=== PATIENT | female | born 1955 | race Caucasian/White ===

== ENCOUNTER 2020-07-11 06:05 | Day surgery (SDC) | payer BC ==
[2020-07-11] MEDS ORDERED: Lactated Ringers 1,000 ML IV SCH (06:30)
[2020-07-11] MEDS ORDERED: DIPRIVAN 200 MG/20 ML IV ONE (07:22)
[2020-07-11] MEDS ORDERED: Versed 2 MG/2 ML Injection ONE (07:23)
[2020-07-11 08:44] VITALS: O2SAT 98
[2020-07-11 08:47] VITALS: BP 110/72; PULSE 68
--- NOTE | 2020-07-11 12:53 | OP ---
SURGERY DATE/TIME: 07/11/2020 0721 PREOPERATIVE DIAGNOSIS: Epigastric abdominal pain. POSTOPERATIVE DIAGNOSES: 1) Mild gastritis. 2) Duodenal polyp. PROCEDURE: EGD. SURGEON: Sidney Rincon M.D. ANESTHESIA: MAC by Mihir Ba CRNA. ESTIMATED BLOOD LOSS: Minimal. SPECIMENS: There was cold forceps polypectomy of duodenal polyp and cold forceps biopsy of gastric antrum x2. DESCRIPTION OF PROCEDURE: After informed written consent was obtained, the patient was taken to the endoscopy suite. She was placed in left lateral decubitus position and a bite block was inserted. After anesthesia was titrated to the desired level of consciousness, the endoscope was inserted in the posterior oropharynx and under direct visualization the esophagus was traversed. The esophageal mucosa all had a normal mucosal appearance. Likewise the gastroesophageal junction appeared normal upon entering the stomach. There was normal rugated gastric mucosa present free of any lesions or defects. There were some mild gastritis-type changes in the antrum. Upon traversing the pylorus there were small polypoid lesion in the proximal duodenum which was removed with cold forceps uneventfully. No other lesions were encountered. Two cold forceps biopsies were taken from the gastric antrum and sent for Helicobacter pylori testing. Upon withdrawal the remainder of the mucosal structures all appeared within normal limits. The scope was removed and the patient was transferred to the recovery room in good condition.
== END 2020-07-11 08:52 | disposition home or self-care (01) ==
LOC: SDC 06:05
PROVIDERS: ATTEND Family Medicine
DX: K29.70 Gastritis, unspecified, without bleeding (principal); K31.7 Polyp of stomach and duodenum
CPT/HCPCS: J2250; J2704

== ENCOUNTER 2020-07-23 10:45 | Day surgery (SDC) | payer BC ==
[~2020-07-23 10:45] MED LIST: Lactated Ringers 1,000 ML IV ONE; Lactated Ringers 1,000 ML IV SCH; MEFOXIN 2 GM PREMIX** 2 GM/50 ML ML IV SCH; Sensorcaine 0.25% 10 ML ONE
[2020-07-23] MEDS ORDERED: MEFOXIN 2 GM PREMIX** 2 GM/50 ML ML IV ONE (11:24)
[2020-07-23] MEDS ORDERED: Lactated Ringers 1,000 ML IV ONE (11:25)
[2020-07-23] MEDS ORDERED: DIPRIVAN 200 MG/20 ML IV ONE (13:44)
[2020-07-23] MEDS ORDERED: SUBLIMAZE 250 MCG/5 ML ONE (13:44)
[2020-07-23] MEDS ORDERED: Zemuron 100 MG/10 ML ONE (13:44)
[2020-07-23] MEDS ORDERED: Versed 2 MG/2 ML Injection ONE (13:44)
[2020-07-23] MEDS ORDERED: Decadron 4 MG INJ ONE (14:03)
[2020-07-23] MEDS ORDERED: Zofran 4 MG/2 ML VIAL ONE (14:03)
[2020-07-23] MEDS ORDERED: BRIDION 200MG/2ML IV ONE (15:06)
[2020-07-23 16:40] VITALS: BP 148/98; PULSE 75; O2SAT 97
--- NOTE | 2020-07-27 11:37 | HP ---
HISTORY OF PRESENT ILLNESS: This is a patient who presents for laparoscopic possible open cholecystectomy due to cholelithiasis and chronic cholecystitis. PAST MEDICAL/SURGICAL HISTORY: Includes robotic hysterectomy, appendectomy, inguinal hernia repair, knee surgery, vaginal prolapse surgery. She also has a history of headaches and arthritis. MEDICATIONS: None. ALLERGIES: NKDA. POLLEN. SOCIAL HISTORY: No tobacco use. Occasional, rare alcohol use. FAMILY HISTORY: Coronary artery disease, diabetes. An aunt with GI cancer. Gallbladder problems also run in the family per patient. PHYSICAL EXAMINATION: GENERAL: No acute distress. CVS: Regular rate and rhythm. PULMONARY: Nonlabored. ABDOMEN: Soft, mild tenderness to palpation right upper quadrant and epigastric. EXTREMITIES: Normal. DIAGNOSIS: Chronic cholecystitis with cholelithiasis. PLAN: Laparoscopic cholecystectomy possible open.
--- NOTE | 2020-07-27 11:50 | OP ---
PROCEDURE DATE/TIME: 07/23/2020 1348 PREOPERATIVE DIAGNOSIS: Chronic cholecystitis with cholelithiasis. POSTOPERATIVE DIAGNOSIS: Chronic cholecystitis with cholelithiasis. PROCEDURE: Laparoscopic cholecystectomy. PROCEDURE PERFORMED BY: Rachel Dent M.D. COMPLICATIONS: None. ESTIMATED BLOOD LOSS: Minimal less than 10 cc. ANESTHESIA: General. SPECIMEN: Gallbladder. PROCEDURE DETAILS: This is a patient who presents with chronic cholecystitis and cholelithiasis. She was seen in the preoperative area. H&P, consent reviewed with her, confirmed. DESCRIPTION OF PROCEDURE: She was then brought back to the operative suite. Anesthesia induced. Prepped and draped in usual sterile fashion. A complete time out performed. Orogastric tube inserted and stomach desufflated. Left upper quadrant incision made. Veress needle used to access the abdominal cavity. Good initial water drop test. Abdomen was then easily insufflated. A 5 mm optical port placed at the skin site under direct visualization. No injuries identified. We then placed an 11 port periumbilical, two - 5 ports in the right upper quadrant. We were able to identify the gallbladder. Took down the adhesions to the omentum and carefully retracted this further. The patient does have a known large stone. We then carefully dissected free the cystic duct and cystic artery. We continued to clear the liver plate. The patient does have a somewhat intrahepatic gallbladder. After clearing the critical view, we insured that only two structures under the gallbladder the cystic duct and cystic artery. These were clipped, ligated and we further removed the gallbladder off the liver bed with Bovie cautery. I did place small pieces of Surgicel in the liver bed to insure everything was hemostatic. It was and so then I removed these. The gallbladder was placed into a specimen bag at the completion of resection. I then withdrew this out of the umbilical port site. I did have to crush the stone to allow the specimen to be removed and I protected the skin and the bag. We did not spill any stone contents into the abdomen at all this was all removed and sent to pathology. We then re-inspected. Everything looked satisfactory. We did some irrigation. Everything is hemostatic. Clips in good position. No bile. I closed the 11 port site with 0 Vicryl laparoscopic suture. We then desufflated through the right upper quadrant trocar. No bleeding from our other trocar sites. We then irrigated the wound, closed with buried 4-0 Monocryl, Steri-Strips and sterile dressing. The patient tolerated the procedure very well. There were no immediate complications. The patient will be going to recovery with tentative plans for discharge home today. She understands all instructions. I have discussed these with the family as well and they will be written down as well.
== END 2020-07-23 17:05 | disposition home or self-care (01) ==
LOC: SDC 10:45
PROVIDERS: ATTEND Surgery
DX: K80.10 Calculus of gallbladder with chronic cholecystitis without obstruction (principal)
CPT/HCPCS: J0694; J1100; J2250; J2405; J2704; J3010

== ENCOUNTER 2023-05-07 12:43 | Emergency (ER) | payer BC ==
--- NOTE | 2023-05-07 12:47 | ERPHSYRPT ---
- History of Present Illness Time Seen by Provider: 05/07/23 12:46 Historian: patient Exam Limitations: no limitations Physician History: This is a 67-year-old white female patient of Dr. Ca who presents with substernal, central chest heaviness/pressure without radiation that has been present intermittently since February 2023 after she contracted COVID-19 infection. Patient has never been diagnosed with cardiac disease. Patient has have a history of gastroesophageal reflux disease. The symptoms today are different. Patient is not diabetic. She does not smoke. She does not have high blood pressure, she does not have a diagnosis of hyperlipidemia. Timing/Duration: today, worse, other (Intermittent same symptoms since February 2023 when she contracted COVID infection) Quality: pressure, other Location: substernal, central (Having this) Chest Pain Radiation: no radiation Severity of Pain-Max: mild Severity of Pain-Current: mild Modifying Factors: Improves With: nothing Associated Symptoms: denies symptoms Prior Chest Pain/Cardiac Workup: no prior chest pain, no prior cardiac workup Nitro Today/Relief: no nitro taken today Aspirin Treatment Today: 81 mg x 4, provided by ED Allergies/Adverse Reactions: No Known Drug Allergies Allergy (Verified 05/07/23 12:55) Home Medications: Diclofenac Sodium 75 mg PO BID 05/07/23 [History] Fluoxetine HCl [Prozac] 40 mg PO DAILY 05/07/23 [History] Travel Risk - International Travel Have you traveled outside of the country in past 3 weeks: No - Coronavirus Screening Are you exhibiting any of the following symptoms?: No Close contact with a COVID-19 positive Pt in past 14-21 Days: No - Review of Systems Constitutional: No Symptoms Eyes: No Symptoms Ears, Nose, & Throat: No Symptoms Respiratory: No Symptoms Cardiac: Chest Pain (Described as a heaviness/pressure) Abdominal/Gastrointestinal: No Symptoms Genitourinary Symptoms: No Symptoms Musculoskeletal: No Symptoms Skin: No Symptoms Neurological: No Symptoms Psychological: No Symptoms Endocrine: No Symptoms Hematologic/Lymphatic: No Symptoms Immunological/Allergic: No Symptoms All Other Systems: Reviewed and Negative - Past Medical History Pertinent Past Medical History: Yes Neurological History: No Pertinent History ENT History: No Pertinent History Cardiac History: No Pertinent History Respiratory History: No Pertinent History Endocrine Medical History: No Pertinent History Musculoskeletal History: Arthritis GI Medical History: GERD, Gallbladder Disease History: No Pertinent History Psycho-Social History: No Pertinent History Female Reproductive Disorders: No Pertinent History Other Medical History: gallbladder stones, - Past Surgical History Past Surgical History: Yes Neuro Surgical History: No Pertinent History Cardiac: No Pertinent History Respiratory: No Pertinent History Gastrointestinal: Appendectomy, Hernia Repair Genitourinary: No Pertinent History Musculoskeletal: Joint Replacement Female Surgical History: Hysterectomy Other Surgical History: bilateral knee replacements, egd, left congenital hernia repair, trigger finger repair jose l hands, bunionectomy R great toe - Social History Smoking Status: Never smoker Exposure to second hand smoke: No Drug Use: none - Nursing Vital Signs Nursing Vital Signs: Initial Vital Signs Temperature 98.3 F 05/07/23 12:46 Pulse Rate 83 05/07/23 12:46 Respiratory Rate 13 05/07/23 12:46 Blood Pressure 165/89 05/07/23 12:46 O2 Sat by Pulse Oximetry 98 05/07/23 12:46 Pain Scale Pain Intensity 3 - Physical Exam General Appearance: no apparent distress, alert, anxiety Eye Exam: PERRL/EOMI, eyes nml inspection Ears, Nose, Throat Exam: normal ENT inspection, moist mucous membranes Neck Exam: normal inspection, non-tender, supple, full range of motion Respiratory Exam: normal breath sounds, chest tenderness (Crepitus mild chest heaviness/pressure), lungs clear, airway intact, No respiratory distress Cardiovascular Exam: regular rate/rhythm, normal heart sounds, normal peripheral pulses Gastrointestinal/Abdomen Exam: soft, normal bowel sounds, No tenderness Pelvic Exam: not done Rectal Exam: not done Back Exam: normal inspection, normal range of motion, No CVA tenderness, No v ertebral tenderness Extremity Exam: normal inspection, normal range of motion, pelvis stable Neurologic Exam: alert, oriented x 3, cooperative, developmental writing instructor II-XII nml as tested, normal mood/affect, nml cerebellar function, nml station & gait, sensation nml Skin Exam: normal color, warm, dry Lymphatic Exam: No adenopathy SpO2 Interpretation: normal O2 Delivery: Room Air - Course Nursing assessment & vital signs reviewed: Yes EKG Interpreted by Me: RATE (79), Sinus Rhythm, NORMAL AXIS, NORMAL INTERVALS, NORMAL QRS, NORMAL ST-T, Other (No acute ischemic changes on today's twelve-lead EKG) Ordered Tests: Active Orders 24 hr Category Date Time Status Furnace Fitter STAT Care 05/07/23 13:00 Active EKG-ER Only STAT Care 05/07/23 13:00 Active IV Insertion STAT Care 05/07/23 13:00 Active Pulse Oximetry (ED) STAT Care 05/07/23 13:00 Active CHEST 1 VIEW (PORTABLE) Stat Exams 05/07/23 13:00 Completed CBC W DIFF Stat Lab 05/07/23 13:12 Completed CMP Stat Lab 05/07/23 13:12 Completed D-DIMER QUANTITATIVE Stat Lab 05/07/23 13:12 Completed MAG [MAGNESIUM] Stat Lab 05/07/23 13:12 Completed NT PRO BNPII Stat Lab 05/07/23 13:12 Completed PROTIME WITH INR Stat Lab 05/07/23 13:12 Completed TROPONIN Q4H Lab 05/07/23 13:12 Completed TROPONIN Q4H Lab 05/07/23 17:00 Ordered TROPONIN Q4H Lab 05/07/23 21:00 Ordered Medication Summary Discontinued Medications Generic Name Dose Route Start Last Admin Trade Name Freq PRN Reason Stop Dose Admin Aspirin 324 mg 05/07/23 13:00 05/07/23 13:17 Aspirin 81 Mg Tab.Chew PO 05/07/23 13:01 324 mg STAT ONE Administration Lab/Rad Data: Laboratory Result Diagrams 05/07/23 13:12 05/07/23 13:12 Laboratory Results 05/07/23 05/07/23 05/07/23 Range/Units 13:12 13:12 13:12 WBC (4.0-10.5) x10^3/uL RBC (4.1-5.4) x10^6/uL Hgb (12.0-16.0) g/dL Hct (35-47) % MCV (78-100) fL MCH (26-32) pg MCHC (32-36) g/dL RDW (11.5-14.0) % Plt Count (150-450) x10^3/uL MPV (7.5-11.0) fL Gran % (36.0-66.0) % Immature Gran % (Auto) (0.00-0.4) % Nucleat RBC Rel Count (0.00-0.1) % Eos # (Auto) (0-0.5) x10^3/uL Immature Gran # (Auto) (0.00-0.03) x10^3u/L Absolute Lymphs (auto) (1.0-4.6) x10^3/uL Absolute Monos (auto) (0.0-1.3) x10^3/uL Absolute Nucleated RBC (0.00-0.01) x10^3u/L Lymphocytes % (24.0-44.0) % Monocytes % (0.0-12.0) % Eosinophils % (0.00-5.0) % Basophils % (0.0-0.4) % Absolute Granulocytes (1.4-6.9) x10^3/uL Basophils # (0-0.4) x10^3/uL PT 10.4 (9.4-12.5) SECONDS INR 0.95 (0.8-3.0) D-Dimer 0.50 (0.0-0.50) mg/L Sodium 134 L (137-145) mmol/L Potassium 4.2 (3.5-5.1) mmol/L Chloride 103 (98-107) mmol/L Carbon Dioxide 26 (22-30) mmol/L Anion Gap 9.7 (5-15) MEQ/L BUN 15 (7-17) mg/dL Creatinine 0.82 (0.52-1.04) mg/dL Estimated GFR 78.8 ML/MIN Glucose 110 H (74-106) mg/dL Calcium 9.5 (8.4-10.2) mg/dL Magnesium 2.1 (1.6-2.3) mg/dL Total Bilirubin 0.50 (0.2-1.3) mg/dL AST 33 (14-36) U/L ALT 28 (0-35) U/L Alkaline Phosphatase 67 (38-126) U/L Troponin I < 0.012 (0.000-0.034) ng/mL NT-Pro-B Natriuret Pep 76.7 (<300) pg/mL Serum Total Protein 6.9 (6.3-8.2) g/dL Albumin 4.3 (3.5-5.0) g/dL 05/07/23 Range/Units 13:12 WBC 3.5 L (4.0-10.5) x10^3/uL RBC 4.10 (4.1-5.4) x10^6/uL Hgb 12.5 (12.0-16.0) g/dL Hct 39.1 (35-47) % MCV 95.4 (78-100) fL MCH 30.5 (26-32) pg MCHC 32.0 (32-36) g/dL RDW 13.2 (11.5-14.0) % Plt Count 265 (150-450) x10^3/uL MPV 9.6 (7.5-11.0) fL Gran % 51.7 (36.0-66.0) % Immature Gran % (Auto) 0.0 (0.00-0.4) % Nucleat RBC Rel Count 0.0 (0.00-0.1) % Eos # (Auto) 0.14 (0-0.5) x10^3/uL Immature Gran # (Auto) 0.00 (0.00-0.03) x10^3u/L Absolute Lymphs (auto) 1.22 (1.0-4.6) x10^3/uL Absolute Monos (auto) 0.29 (0.0-1.3) x10^3/uL Absolute Nucleated RBC 0.00 (0.00-0.01) x10^3u/L Lymphocytes % 35.1 (24.0-44.0) % Monocytes % 8.3 (0.0-12.0) % Eosinophils % 4.0 (0.00-5.0) % Basophils % 0.9 (0.0-0.4) % Absolute Granulocytes 1.80 (1.4-6.9) x10^3/uL Basophils # 0.03 (0-0.4) x10^3/uL PT (9.4-12.5) SECONDS INR (0.8-3.0) D-Dimer (0.0-0.50) mg/L Sodium (137-145) mmol/L Potassium (3.5-5.1) mmol/L Chloride (98-107) mmol/L Carbon Dioxide (22-30) mmol/L Anion Gap (5-15) MEQ/L BUN (7-17) mg/dL Creatinine (0.52-1.04) mg/dL Estimated GFR ML/MIN Glucose (74-106) mg/dL Calcium (8.4-10.2) mg/dL Magnesium (1.6-2.3) mg/dL Total Bilirubin (0.2-1.3) mg/dL AST (14-36) U/L ALT (0-35) U/L Alkaline Phosphatase (38-126) U/L Troponin I (0.000-0.034) ng/mL NT-Pro-B Natriuret Pep (<300) pg/mL Serum Total Protein (6.3-8.2) g/dL Albumin (3.5-5.0) g/dL - Progress Progress: improved, re-examined Air Movement: good Progress Note: 05/07/23 12:58 This patient's medical issue is 1 of moderate complexity. The level of complexity and the workup performed is based on review of the patient's past medical history, review of the patient's medication list, review the patient drug allergy list, history present illness and physical findings on examination. The workup includes placement of intravenous line, twelve-lead EKG, CBC, CMP, BNP, D-dimer, troponin, and chest x-ray. We will also order magnesium level. 05/07/23 14:18 I interpreted the patient's laboratory data results. There is no evidence of any acute, emergent medical issue. The chest x-ray was interpreted by the radiologist I reviewed the impression. Impression reads prominent bronchovascular markings bilaterally. There is no active pulmonary pathology. Blood Culture(s) Obtained: No Counseled pt/family regarding: lab results, diagnosis, need for follow-up, rad results Medical Desision Making - Independent Historian Additional History obtained from: Family - Diagnostic Testing Diagnostic test were ordered, analyzed, and reviewed by me: Yes Radiological Interpretation: Reviewed by me, Teleradiologist Report - Risk of complications The pt has a mod risk of morbidity or mortality based on: Need for prescription drug management - Departure Departure Disposition: Home Clinical Impression: Bronchitis Condition: Stable Critical Care Time: No Referrals: KYLE CA MD [Primary Care Provider] - Follow up/PCP as directed Additional Instructions: Drink plenty of fluids. Take your medication as prescribed. Call your primary care provider today to make arranges for follow-up appointment for further evaluation management. Prescriptions: Prednisone 10 mg [Deltasone 10 mg] 10 mg PO TID #12 tablet
[2023-05-07 12:55] VITALS: TEMP 98.3
[2023-05-07 13:17] LABS: BASOPHIL % 0.9 % (0.0-0.4); Basophil (Absolute #) 0.03 x10^3/uL (0-0.4); Eosinophil (Absolute #) 0.14 x10^3/uL (0-0.5); Hematocrit 39.1 % (35-47); Hemoglobin 12.5 g/dL (12.0-16.0); Lymphocyte (Absolute #) 1.22 x10^3/uL (1.0-4.6); Lymphocytes % 35.1 % (24.0-44.0); Mean Cell Volume 95.4 fL (78-100); Mean Corpuscular Hemoglobin 30.5 pg (26-32); Mean Platelet Volume 9.6 fL (7.5-11.0); Monocyte (Absolute #) 0.29 x10^3/uL (0.0-1.3); Monocytes % 8.3 % (0.0-12.0); Neutrophil % 51.7 % (36.0-66.0); Platelet Count 265 x10^3/uL (150-450); Red Cell Distribution Width 13.2 % (11.5-14.0); White Blood Count 3.5 x10^3/uL (4.0-10.5)
[2023-05-07] MEDS: BABY ASPIRIN 81 MG CHEW PO ONE (13:17)
[2023-05-07 13:32] LABS: D-DIMER QUANTITATIVE 0.5 mg/L (0.0-0.50); INR 0.95 (0.8-3.0); PROTIME 10.4 SECONDS (9.4-12.5)
--- NOTE | 2023-05-07 13:39 | XRAY ---
CLINICAL HISTORY: Chest pain TECHNIQUE: X-ray chest frontal projection. COMPARISON: None. FINDINGS: Prominent bronchovascular markings are seen bilaterally. No consolidation seen in either lung field. Normal hitesh and mediastinum. Mild cardiomegaly noted. Unfolding of aorta seen. Both costophrenic angles are clear. Visualized bones show osteopenia and degenerative changes. IMPRESSION: Prominent bronchovascular markings are seen bilaterally. No active pulmonary pathology seen. Electronically Signed by: Odalys Mcdonald MD. (05/07/2023 13:36:08 EST)
[2023-05-07 14:02] VITALS: BP 122/87; PULSE 66; RESP 10; O2SAT 97
[2023-05-07 14:13] LABS: ALBUMIN 4.3 g/dL (3.5-5.0); ALKALINE PHOSPHATASE 67 U/L (38-126); ANION GAP 9.7 MEQ/L (5-15); BLOOD UREA NITROGEN 15 mg/dL (7-17); CHLORIDE 103 mmol/L (98-107); Calcium 9.5 mg/dL (8.4-10.2); Carbon Dioxide 26 mmol/L (22-30); Creatinine 1 0.82 mg/dL (0.52-1.04); EST GLOMERULAR FILTRATION RATE 78.8 ML/MIN; Glucose 110 mg/dL (74-106); MAGNESIUM 2.1 mg/dL (1.6-2.3); Potassium 4.2 mmol/L (3.5-5.1); SGOT/AST 33 U/L (14-36); SGPT/ALT 28 U/L (0-35); SODIUM 134 mmol/L (137-145); TROPONIN < 0.012 ng/mL (0.000-0.034); Total Protein 6.9 g/dL (6.3-8.2)
== END 2023-05-07 14:40 | disposition home or self-care (01) ==
LOC: ED 12:43
DX: J40 Bronchitis, not specified as acute or chronic (principal); R07.9 Chest pain, unspecified; Z79.52 Long term (current) use of systemic steroids; Z79.899 Other long term (current) drug therapy; Z86.16 Personal history of COVID-19
CPT/HCPCS: 36000; 36415; 71045; 80053; 83735; 83880; 84484; 85025; 85379; 85610; 93005; 93041; 94760; 99284; A9270-GY

== ENCOUNTER 2023-12-30 19:21 | Emergency (ER) | payer BC ==
[2023-12-30 19:38] VITALS: TEMP 97.7
--- NOTE | 2023-12-30 20:41 | ERPHSYRPT ---
- History of Present Illness Time Seen by Provider: 12/30/23 20:20 Source: patient Exam Limitations: no limitations Patient Subjective Stated Complaint: diarrhea since yesterday Triage Nursing Assessment: Pt brought into ER room 8 by daughter in wheelchair. Pt c/o diarrhea since yesterday. Abd soft with active bs x4 quad, tender on palpation all over. Pt c/o being gassy and the diarrhea comes so fast, has had a few episodes of incontinence. Pt denies any vomiting or fever, but has been gaggy. Physician History: 68-year-old female presents to emergency department for evaluation of generalized weakness malaise. Patient reports that she had been experiencing diarrhea for approximately 2 weeks. Patient states about 3 weeks ago she was treated for a sinus infection. She was on Augmentin. Diarrhea started while on Augmentin. Symptoms have been continuous. Patient reports symptoms let up somewhat which caused her not to seek help earlier. But the diarrhea has reoccurred. Patient complains of mild generalized abdominal pain. No trauma no fever. Patient's symptoms are constant. Symptoms are moderate in intensity. No specific worsening or improving factors. Patient reports her daughter has similar symptoms. She voices no other complaints or concerns at this time. Portions of this note were created with voice recognition technology. There may be grammatical, spelling, punctuation or sound alike errors Timing/Duration: week(s) (2 weeks) Severity: moderate Modifying Factors: Improves With: nothing Associated Symptoms: other (Generalized weakness) Allergies/Adverse Reactions: No Known Drug Allergies Allergy (Verified 12/30/23 19:48) Home Medications: Diclofenac Sodium 75 mg PO BID PRN PRN 05/07/23 [History] Fluoxetine HCl [Prozac] 40 mg PO DAILY 05/07/23 [History] Atorvastatin Calcium 20 mg PO DAILY 12/30/23 [History] Metoprolol Succinate 25 mg PO DAILY 12/30/23 [History] PANTOPRAZOLE 40 mg Tablet [Protonix 40MG Tablet] 1 tab PO DAILY 12/30/23 [History] Hx Tetanus, Diphtheria Vaccination/Date Given: No Hx Influenza Vaccination/Date Given: Yes Hx Pneumococcal Vaccination/Date Given: Yes Travel Risk - International Travel Have you traveled outside of the country in past 3 weeks: No - Emerging Infectious Disease Are you exhibiting symptoms associated with any current EIDs: Yes Symptoms: Diarrhea - Review of Systems Constitutional: No Symptoms, No Fever, No Chills Eyes: No Symptoms Ears, Nose, & Throat: No Symptoms Respiratory: No Symptoms, No Cough, No Dyspnea Cardiac: No Symptoms, No Chest Pain, No Edema, No Syncope Abdominal/Gastrointestinal: No Symptoms, No Abdominal Pain, No Nausea, No Vomiting, No Diarrhea Genitourinary Symptoms: No Symptoms, No Dysuria Musculoskeletal: No Symptoms, No Back Pain, No Neck Pain Skin: No Symptoms, No Rash Neurological: No Symptoms, No Dizziness, No Focal Weakness, No Sensory Changes Psychological: No Symptoms Endocrine: No Symptoms Hematologic/Lymphatic: No Symptoms Immunological/Allergic: No Symptoms All Other Systems: Reviewed and Negative - Past Medical History Pertinent Past Medical History: Yes Neurological History: No Pertinent History ENT History: No Pertinent History Cardiac History: High Cholesterol, Hypertension, Other Respiratory History: No Pertinent History Endocrine Medical History: No Pertinent History Musculoskeletal History: Osteoarthritis GI Medical History: GERD, Gallbladder Disease History: No Pertinent History Psycho-Social History: No Pertinent History Female Reproductive Disorders: No Pertinent History Other Medical History: MITRAL VALVE. BILATERAL TKA., TRIGGER FINGER REPAIR, ALYSON'Y, HYSTERECTOMY, RK - Past Surgical History Past Surgical History: Yes Neuro Surgical History: No Pertinent History Cardiac: No Pertinent History Respiratory: No Pertinent History Gastrointestinal: Appendectomy, Hernia Repair Genitourinary: No Pertinent History Musculoskeletal: Joint Replacement Female Surgical History: Hysterectomy Other Surgical History: bilateral knee replacements, egd, left congenital hernia repair, trigger finger repair jose l hands, bunionectomy R great toe - Social History Smoking Status: Never smoker Exposure to second hand smoke: No Drug Use: none Patient Lives Alone: No - Social Determinants of Health Will the patient participate in the screening: Yes Do you worry about a steady place to live?: No Do you have any problems with any of the following?: No known problems In the past 12 months,have you had to go without utilities?: No Transportation Issues: No Has anyone in your support network made you feel unsafe?: No Have you or anyone in your house had to go without enough: No - Nursing Vital Signs Nursing Vital Signs: Initial Vital Signs Temperature 97.7 F 12/30/23 19:37 Pulse Rate 70 12/30/23 19:37 Respiratory Rate 18 12/30/23 19:37 Blood Pressure 127/74 12/30/23 19:37 O2 Sat by Pulse Oximetry 98 12/30/23 19:37 Pain Scale Pain Intensity 0 - Physical Exam General Appearance: no apparent distress, alert Eye Exam: PERRL/EOMI, eyes nml inspection Ears, Nose, Throat Exam: normal ENT inspection, moist mucous membranes Neck Exam: normal inspection, non-tender, supple, full range of motion Respiratory Exam: normal breath sounds, lungs clear, airway intact, No respirat ory distress Cardiovascular Exam: regular rate/rhythm, normal heart sounds, normal peripheral pulses Gastrointestinal/Abdomen Exam: soft, normal bowel sounds, tenderness (Mild diffuse abdominal pain), No mass Back Exam: normal inspection, normal range of motion, No CVA tenderness, No vertebral tenderness Extremity Exam: normal inspection, normal range of motion, pelvis stable Neurologic Exam: alert, oriented x 3, cooperative, normal mood/affect, sensation nml, No motor deficits Skin Exam: normal color, warm, dry, No rash Lymphatic Exam: No adenopathy SpO2 Interpretation: normal SpO2: 98 O2 Delivery: Room Air - Course Nursing assessment & vital signs reviewed: Yes Ordered Tests: Active Orders 24 hr Category Date Time Status Vba Developer STAT Care 12/30/23 20:37 Completed IV Insertion STAT Care 12/30/23 20:37 Completed Pulse Oximetry (ED) STAT Care 12/30/23 20:37 Completed ABDOMEN AND PELVIS W/0 CONTRAS [CT] Stat Exams 12/30/23 20:37 Taken BLOOD CULTURE Stat Lab 12/30/23 20:50 Received CBC W DIFF Stat Lab 12/30/23 20:40 Completed CMP Stat Lab 12/30/23 20:40 Completed CULTURE,URINE Stat Lab 12/30/23 20:40 Received UA W/RFX UR CULTURE Stat Lab 12/30/23 20:40 Completed Medication Summary Discontinued Medications Generic Name Dose Route Start Last Admin Trade Name Freq PRN Reason Stop Dose Admin Sodium Chloride 1,000 mls @ 999 mls/hr 12/30/23 20:37 12/30/23 21:00 Sodium Chloride 0.9% 1000 Ml IV 12/30/23 21:37 999 mls/hr .Q1H1M STA Administration Sodium Chloride Confirm 12/30/23 20:59 Sodium Chloride 0.9% 1000 Ml Administered 12/30/23 21:00 Dose 1,000 mls @ ud .ROUTE .[facility] Lab/Rad Data: Laboratory Result Diagrams 12/30/23 20:40 12/30/23 20:40 Laboratory Results 12/30/23 12/30/23 12/30/23 Range/Units 21:00 20:40 20:40 WBC 10.5 H (3.98-10.04) x10^3/uL RBC 4.40 (3.93-5.22) x10^6/uL Hgb 13.4 (11.2-15.7) g/dL Hct 41.4 (34.1-44.9) % MCV 94.1 (79.4-94.8) fL MCH 30.5 (25.6-32.2) pg MCHC 32.4 (32.2-35.5) g/dL RDW 13.2 (11.7-14.4) % Plt Count 295 (182-369) x10^3/uL MPV 10.7 (9.4-12.3) fL Gran % 82.6 H (34.0-71.1) % Immature Gran % (Auto) 0.3 (0.001-0.429) % Nucleat RBC Rel Count 0.0 (0.00-0.2) % Eos # (Auto) 0.03 L (0.04-0.36) x10^3/uL Immature Gran # (Auto) 0.03 (0.001-0.031) x10^3u/L Absolute Lymphs (auto) 1.22 (1.18-3.74) x10^3/uL Absolute Monos (auto) 0.52 (0.24-0.86) x10^3/uL Absolute Nucleated RBC 0.00 (0.00-0.012) x10^3u/L Lymphocytes % 11.6 L (19.3-51.7) % Monocytes % 4.9 (4.7-12.5) % Eosinophils % 0.3 L (0.7-5.8) % Basophils % 0.3 (0.1-1.2) % Absolute Granulocytes 8.71 H (1.56-6.13) x10^3/uL Basophils # 0.03 (0.01-0.08) x10^3/uL Sodium 138 (135-145) mmol/L Potassium 3.6 (3.5-5.1) mmol/L Chloride 105 (98-107) mmol/L Carbon Dioxide 20 L (22-30) mmol/L Anion Gap 15.7 H (5-15) MEQ/L BUN 13 (7-17) mg/dL Creatinine 0.89 (0.52-1.04) mg/dL Estimated GFR 71.0 ML/MIN Glucose 128 H (74-106) mg/dL Calcium 9.2 (8.4-10.2) mg/dL Total Bilirubin 1.10 (0.2-1.3) mg/dL AST 34 (14-36) U/L ALT 29 (0-35) U/L Alkaline Phosphatase 102 (38-126) U/L Serum Total Protein 7.3 (6.3-8.2) g/dL Albumin 4.5 (3.5-5.0) g/dL Urine Color (Yellow) Urine Appearance (Clear) Urine pH (4.6-8.0) Ur Specific Abbot (1.005-1.030) Urine Protein (Negative) Urine Glucose (UA) (Negative) mg/dL Urine Ketones (Negative) Urine Blood (Negative) Urine Nitrite (Negative) Urine Bilirubin (Negative) Urine Urobilinogen (0.2) mg/dL Ur Leukocyte Esterase (Negative) U Hyaline Cast (Auto) (0-2) /LPF Urine Microscopic RBC (0-5) /HPF Urine Microscopic WBC (0-5) /HPF Ur Epithelial Cells (None Seen) /HPF Urine Bacteria (None Seen) /HPF Urine Culture Reflexed (NO) Influenza Type A Ag NEGATIVE (NEGATIVE) Influenza Type B Ag NEGATIVE (NEGATIVE) RSV (PCR) NEGATIVE (NEGATIVE) SARS-CoV-2 (PCR) NEGATIVE (NEGATIVE) 12/30/23 Range/Units 20:40 WBC (3.98-10.04) x10^3/uL RBC (3.93-5.22) x10^6/uL Hgb (11.2-15.7) g/dL Hct (34.1-44.9) % MCV (79.4-94.8) fL MCH (25.6-32.2) pg MCHC (32.2-35.5) g/dL RDW (11.7-14.4) % Plt Count (182-369) x10^3/uL MPV (9.4-12.3) fL Gran % (34.0-71.1) % Immature Gran % (Auto) (0.001-0.429) % Nucleat RBC Rel Count (0.00-0.2) % Eos # (Auto) (0.04-0.36) x10^3/uL Immature Gran # (Auto) (0.001-0.031) x10^3u/L Absolute Lymphs (auto) (1.18-3.74) x10^3/uL Absolute Monos (auto) (0.24-0.86) x10^3/uL Absolute Nucleated RBC (0.00-0.012) x10^3u/L Lymphocytes % (19.3-51.7) % Monocytes % (4.7-12.5) % Eosinophils % (0.7-5.8) % Basophils % (0.1-1.2) % Absolute Granulocytes (1.56-6.13) x10^3/uL Basophils # (0.01-0.08) x10^3/uL Sodium (135-145) mmol/L Potassium (3.5-5.1) mmol/L Chloride (98-107) mmol/L Carbon Dioxide (22-30) mmol/L Anion Gap (5-15) MEQ/L BUN (7-17) mg/dL Creatinine (0.52-1.04) mg/dL Estimated GFR ML/MIN Glucose (74-106) mg/dL Calcium (8.4-10.2) mg/dL Total Bilirubin (0.2-1.3) mg/dL AST (14-36) U/L ALT (0-35) U/L Alkaline Phosphatase (38-126) U/L Serum Total Protein (6.3-8.2) g/dL Albumin (3.5-5.0) g/dL Urine Color Yellow (Yellow) Urine Appearance Clear (Clear) Urine pH 5.5 (4.6-8.0) Ur Specific Abbot 1.020 (1.005-1.030) Urine Protein Trace A (Negative) Urine Glucose (UA) Negative (Negative) mg/dL Urine Ketones Negative (Negative) Urine Blood Trace (Negative) Urine Nitrite Negative (Negative) Urine Bilirubin Negative (Negative) Urine Urobilinogen 0.2 (0.2) mg/dL Ur Leukocyte Esterase Trace A (Negative) U Hyaline Cast (Auto) NONE SEEN (0-2) /LPF Urine Microscopic RBC 0-2 (0-5) /HPF Urine Microscopic WBC 6-10 A (0-5) /HPF Ur Epithelial Cells None Seen (None Seen) /HPF Urine Bacteria None Seen (None Seen) /HPF Urine Culture Reflexed YES (NO) Influenza Type A Ag (NEGATIVE) Influenza Type B Ag (NEGATIVE) RSV (PCR) (NEGATIVE) SARS-CoV-2 (PCR) (NEGATIVE) - Progress Progress: improved Progress Note: UA suggestive of possible UTI. However patient just completed a course of Augmentin. Will hold off on additional antibiotics as the Augmentin may have contributed to her current diarrhea. We will await for urine cultures. 12/30/23 22:12 68-year-old female presents to our ED for evaluation of diarrhea. Vague abdominal discomfort. Laboratory workup essentially nonremarkable. No dehydration observed. IV fluids infused. UA cultures pending. Patient reassessed. Patient states she is feels better and is requesting discharge. No indication for further workup will discharge home. Patient agrees to follow-up with her primary care doctor within 48 hours for reevaluation. Complexity problem addressed is moderate acute complicated. No critical care time. Complex of data reviewed and analyzed is moderate. Test ordered chest reviewed results analyzed and correlated clinically with history and physical exam. Risk of complication and or risk of morbidity/mortality of patient management is low. Vital stable. Time spent to discharge patient is appr oximately 20 minutes. Plan of care established for shared decision making. No social determinants of health present to impede follow-up. Portions of this note were created with voice recognition technology. There may be grammatical, spelling, punctuation or sound alike errors 12/30/23 23:43 Counseled pt/family regarding: lab results, diagnosis, need for follow-up, rad results - Departure Departure Disposition: Home Clinical Impression: Diarrhea, Abdominal pain Condition: Stable Critical Care Time: No Referrals: KYLE CA MD [Primary Care Provider] - Follow up/PCP as directed Instructions: Diarrhea, Adult ED Additional Instructions: Discharge/Care Plan ELIU SCHRADER was seen on 12/30/23 in the Emergency Room. The patient was counseled regarding Diagnosis,Lab results, Imaging studies, need for follow up and when to return to the Emergency Room. Prescriptions given: Discharge Note I have spoken with the patient and/or caregivers. I have explained the patient's condition, diagnosis and treatment plan based on the information available to me at this time. I have answered the patient's and/or caregiver's questions and addressed any concerns. The patient and/or caregivers have as good understanding of the patient's diagnosis, condition and treatment plan as can be expected at this point. The vital signs have been stable. The patient's condition is stable and appropriate for discharge from the emergency department. The patient will pursue further outpatient evaluation with the primary care physician or other designated or consulting physician as outlined in the discharge instructions. The patient and/or caregivers are agreeable to this plan of care and follow-up instructions have been explained in detail. The patient and/or caregivers have received these instruction. The patient/and or caregivers are aware that any significant change in condition or worsening of symptoms should prompt an immediate return to this or the closest emergency department or call 911.
[2023-12-30 20:56] LABS: Absolute Neutrophil Ct (ANC) 8.71 x10^3/uL (1.56-6.13); BASOPHIL % 0.3 % (0.1-1.2); Basophil (Absolute #) 0.03 x10^3/uL (0.01-0.08); Eosinophil % 0.3 % (0.7-5.8); Eosinophil (Absolute #) 0.03 x10^3/uL (0.04-0.36); Hematocrit 41.4 % (34.1-44.9); Hemoglobin 13.4 g/dL (11.2-15.7); IMMATURE GRAN # 0.03 x10^3u/L (0.001-0.031); IMMATURE GRAN % 0.3 % (0.001-0.429); Lymphocyte (Absolute #) 1.22 x10^3/uL (1.18-3.74); Lymphocytes % 11.6 % (19.3-51.7); Mean Cell Volume 94.1 fL (79.4-94.8); Mean Corpuscular Hemoglobin 30.5 pg (25.6-32.2); Mean Corpuscular Hgb Concent. 32.4 g/dL (32.2-35.5); Mean Platelet Volume 10.7 fL (9.4-12.3); Monocyte (Absolute #) 0.52 x10^3/uL (0.24-0.86); Monocytes % 4.9 % (4.7-12.5); Neutrophil % 82.6 % (34.0-71.1); Platelet Count 295 x10^3/uL (182-369); Red Cell Distribution Width 13.2 % (11.7-14.4); White Blood Count 10.5 x10^3/uL (3.98-10.04)
[2023-12-30] MEDS ORDERED: Sodium Chloride 0.9% 1000 ML 1,000 ML ONE (20:59)
[2023-12-30] MEDS: Sodium Chloride 0.9% 1000 ML 1,000 ML IV STA (21:00)
[2023-12-30 21:05] LABS: Appearance Clear (Clear); Bacteria None Seen /HPF (None Seen); Bilirubin Negative (Negative); Blood Trace (Negative); Epithelial Cells None Seen /HPF (None Seen); Glucose, Urine Negative (Negative); Hyaline Casts NONE SEEN /LPF (0-2); Ketones Negative (Negative); Leukocyte Esterase Trace (Negative); Nitrite Negative (Negative); Ph 5.5 (4.6-8.0); Protein,Urine Dip Trace (Negative); RBC 0-2 /HPF (0-5); Urobilinogen 0.2 mg/dL (0.2)
[2023-12-30 21:10] LABS: ALBUMIN 4.5 g/dL (3.5-5.0); ANION GAP 15.7 MEQ/L (5-15); BILIRUBIN,TOTAL 1.1 mg/dL (0.2-1.3); Calcium 9.2 mg/dL (8.4-10.2); Creatinine 1 0.89 mg/dL (0.52-1.04); Potassium 3.6 mmol/L (3.5-5.1); Total Protein 7.3 g/dL (6.3-8.2)
[2023-12-30 21:40] LABS: INFLUENZA A NEGATIVE (NEGATIVE); INFLUENZA B NEGATIVE (NEGATIVE); RESPIRATORY SYNCTIAL VIRUS NEGATIVE (NEGATIVE); SARS-CoV-2 Xpert Express NEGATIVE (NEGATIVE)
[2023-12-30 23:24] VITALS: BP 113/69; PULSE 63; RESP 14
[2023-12-30 23:47] VITALS: O2SAT 98
[2023-12-31 00:56] LABS: 027 TOX PROD PRESUMPTIVE NEGATIVE (NEGATIVE); TOXIGENIC C. DIFF ORG NEGATIVE (NEGATIVE)
--- NOTE | 2023-12-31 08:51 | XRAY ---
Indication: Pain. Diarrhea. Multiple contiguous axial images obtained through the abdomen and pelvis without contrast. Comparison: None Lung bases demonstrates minimal fibrosis/scarring. No infiltrate or effusion. Heart not enlarged. Noncontrasted stomach and bowel loops appear nonobstructed. Small descending duodenal diverticulum. Mild fluid distended colon with fluid leveling favoring diarrhea. Appendectomy, hysterectomy, and cholecystectomy reported. No free fluid/air. Remaining liver, pancreas, spleen, adrenal glands, kidneys, ureters, and bladder are unremarkable for noncontrast exam. Minimal aortic calcifications without AAA. Osseous structures intact with osteopenia and mild/moderate degenerative changes throughout spine. No ventral or inguinal hernias. Impression: Colonic diarrhea, duodenal diverticulum, arteriosclerotic disease, and chronic bony findings. Remaining CT abdomen/pelvis without contrast exam is negative.
== END 2023-12-30 23:30 | disposition home or self-care (01) ==
LOC: ED 19:21
DX: R19.7 Diarrhea, unspecified (principal); R10.84 Generalized abdominal pain; R53.1 Weakness; E78.5 Hyperlipidemia, unspecified; I10 Essential (primary) hypertension; Z79.899 Other long term (current) drug therapy
CPT/HCPCS: 0241U; 36000; 36415; 74176; 80053; 81001; 85025; 87040; 87077; 87086; 87186; 93041; 94760; 96360; 99284; 87493